=== PATIENT | female | born 1975 | race Two or more races ===

== ENCOUNTER → 2025-02-10 | Outpatient (CLI) | payer BC, SELFPAY ==
--- NOTE | 2025-02-10 | XR_ITS ---
Examination: Left hand 2 views Technique : AP lateral left hand 2 views INDICATIONS: Injury to the hand 3 months ago, hand pain FINDINGS: Moderate juxta-articular bone demineralization No acute fracture Mild diffuse osteoarthritis IMPRESSION: No acute fracture
== END | disposition home or self-care (01) ==
LOC: CDIM 07:49
PROVIDERS: PCP Family Medicine; Referring Provider Family Medicine; Visit Provider Family Medicine
DX: S69.92XA Unspecified injury of left wrist, hand and finger(s), initial encounter (principal); X58.XXXA Exposure to other specified factors, initial encounter
CPT/HCPCS: 73120